=== PATIENT | male | born 1990 | race Caucasian/White ===

== ENCOUNTER 2017-05-25 10:14 | Emergency (ER) | payer BC ==
[2017-05-25 10:27] VITALS: BP 139/88; TEMP 98.5; O2SAT 96
[2017-05-25] MEDS ORDERED: AMOXICILLIN & POT CLAVULANATE 875 MG TAB PO ONE (10:37)
--- NOTE | 2017-05-25 10:39 | ED.PDOC ---
History of Present Illness - General Chief Complaint: ENT Problem Stated Complaint: fever,sore throat,cough Time Seen by Provider: 05/25/17 10:37 Source: patient Exam Limitations: no limitations - History of Present Illness Initial Comments: the patient is a 26-year-old male presenting to the emergency room secondary to a sore throat along with low-grade fever and a mildly productive cough for the last4-5 days. He apparently did have a positive strep test 3 days ago at facility but did not receive a prescription. No history of any asthma. He is not short of breath. No nuchal rigidity or meningeal signs. No rash. No chest pain. Timing/Duration: 1 week Severity: mild Improving Factors: nothing Worsening Factors: nothing Associated Symptoms: cough, loss of appetite, malaise Allergies/Adverse Reactions: Allergies NO KNOWN ALLERGY Allergy (Verified 10/19/15 00:59) Home Medications: Ambulatory Orders Amoxicillin & Pot Clavulanate [Augmentin Tab] 875 mg PO BID #20 tab 05/25/17 Review of Systems - Review of Systems Constitutional: States: fever, malaise EENTM: States: nose congestion - mild, throat pain Respiratory: States: cough Cardiology: States: no symptoms reported Gastrointestinal/Abdominal: States: no symptoms reported Genitourinary: States: no symptoms reported Musculoskeletal: States: no symptoms reported Skin: States: no symptoms reported Neurological: States: no symptoms reported Endocrine: States: no symptoms reported All other Systems: No Change from Baseline Past Medical History (General) - Patient Medical History Hx Seizures: No Hx Stroke: No Hx Dementia: No Hx Asthma: No Hx of COPD: No Hx Cardiac Disorders: No Hx Congestive Heart Failure: No Hx Pacemaker: No Hx Hypertension: No Hx Thyroid Disease: No Hx Diabetes: No Hx Gastroesophageal Reflux: No Hx Renal Disease: No Hx Cancer: No Hx of HIV: No Hx Hepatitis C: No Hx MRSA: No Surgical History: no surgical history - Vaccination History Hx Tetanus, Diphtheria Vaccination: Yes Hx Influenza Vaccination: Yes Hx Pneumococcal Vaccination: No - Social History Hx Tobacco Use: Yes Hx Chewing Tobacco Use: No Hx Alcohol Use: Yes - occ Hx Substance Use: No Hx Depression: No Hx Physical Abuse: No Hx Emotional Abuse: No Hx Suspected Abuse: No Family Medical History - Family History Father Living Status: Still Living Hx Family Hypertension: Yes Hx Cardiac Disease: Yes Hx Family Diabetes: Yes Physical Exam - Physical Exam General Appearance: Alert, Comfortable, No apparent distress Eye Exam: bilateral normal Ears, Nose, Throat: hearing grossly normal, nasal congestion, pharyngeal erythema Neck: full range of motion, supple Respiratory: lungs clear, normal breath sounds, no respiratory distress, no accessory muscle use Cardiovascular/Chest: normal peripheral pulses, regular rate, rhythm, no edema Peripheral Pulses: radial,right: 2+, radial,left: 2+, dorsalis pedis,right: 2+, dorsalis pedis,left: 2+ Gastrointestinal/Abdominal: non tender, soft Rectal Exam: deferred Back Exam: no CVA tenderness, no vertebral tenderness Extremity: normal range of motion, non-tender, normal inspection, no pedal edema , normal capillary refill Neurologic: child care leader II-XII nml as tested, alert, normal mood/affect, oriented x 3 Skin Exam: normal color Comments: Vital Signs - 24 hr 05/25/17 10:23 Temperature 98.5 F Pulse Rate [ 103 H Right Brachial] Respiratory 20 Rate Blood Pressure 139/88 [Right Arm] O2 Sat by Pulse 96 Oximetry Progress - Progress Progress: 05/25/17 10:39 the patient a 26-year-old male with a positive test for strep throat at an outpatient facility and symptoms consistent with that diagnosis. The patient is being given a dose of Augmentin here and will be placed on 10 days as an outpatient. He needs to keep well-hydrated. Motrin can be used every 8 hours to help reduce symptoms as well. ER warnings were given for any significant worsening. Follow up with primary care doctor next week. Departure - Departure Clinical Impression: Streptococcal sore throat Disposition: Discharge to Home or Self Care Condition: Fair Departure Forms: ED Discharge - Pt. Copy, Patient Portal Self Enrollment Instructions: DI for Strep Throat Diet: regular diet Activity: increase activity as tolerated Referrals: BRYON BARNES [Primary Care Provider] - 1-2 Weeks Prescriptions: Amoxicillin & Pot Clavulanate [Augmentin Tab] 875 mg PO BID #20 tab Home Medications: Ambulatory Orders Amoxicillin & Pot Clavulanate [Augmentin Tab] 875 mg PO BID #20 tab 05/25/17 Additional Instructions: the patient a 26-year-old male with a positive test for strep throat at an outpatient facility and symptoms consistent with that diagnosis. The patient is being given a dose of Augmentin here and will be placed on 10 days as an outpatient. He needs to keep well-hydrated. Motrin can be used every 8 hours to help reduce symptoms as well. ER warnings were given for any significant worsening. Follow up with primary care doctor next week.
== END 2017-05-25 11:16 | disposition home or self-care (01) ==
LOC: ER 10:14
DX: J02.0 Streptococcal pharyngitis (principal)